=== PATIENT | male | born 1935 | race Caucasian/White ===

== ENCOUNTER → 2023-09-26 | Outpatient (CLI) | payer MEDICARE, SELFPAY ==
--- NOTE | 2023-09-26 12:56 | ART_ITS ---
Reason For Study: BLE pain Procedure A bilateral lower extremity continuous wave Doppler with analog waveform analysis,segmental pressures,and ankle brachial indexes without exercise. Left Segmental Pressures Left brachial= 109mmHg. Left posterior tibial artery = 134mmHg. Left dorsalis pedis artery = 128mmHg. Left digit = 103 mmHg. The left posterior tibial artery waveforms are triphasic. The left dorsalis pedis waveforms are triphasic. Right Segmental Pressures Right brachial= 110mmHg. Right posterior tibial artery = 127mmHg. Right dorsalis pedis artery = 123mmHg. Right digit = 96 mmHg. The right posterior tibial artery waveforms are triphasic. The right dorsalis pedis waveforms are triphasic. Indices The right ankle brachial index by the posterior tibial artery is 1.15. The right ankle brachial index by the dorsalis pedis is 1.12. The right digital-brachial index is 0.87. The left ankle brachial index by the posterior tibial artery is 1.22. The left ankle brachial index by the dorsalis pedis is 1.16. The left digital-brachial index is 0.94. VL/Lower Ext Art Exam w/o Exercis Interpretation Summary Triphasic Doppler waveforms are noted at ankle level bilaterally. Pulse-volume recordings appear satisfactory at all levels bilaterally. Resting ankle-brachial indices are norm al bilaterally. Digital-brachial indices are normal bilaterally. There is no evidence of significant arterial occlusive disease in the lower ext remities bilaterally. Ordering Physician: Heather Altamirano Referring Physician: HEATHER ALTAMIRANO DPM Performed By: Rosendo Up RVT
--- NOTE | 2023-09-26 12:56 | VDLE_ITS ---
Reason For Study: BLE Pain RIGHT LEFT CFV is compressible, spontaneous, phasic, CFV is compressible, spontaneous, phasic, competent and demonstrates normal competent, and demonstrates normal augmentation. augmentation. FV is compressible, spontaneous, phasic, FV is compressible, spontaneous, phasic, competent and demonstrates normal competent and demonstrates normal augmentation. augmentation. POP V is compressible, spontaneous, phasic, POP V is compressible, spontaneous, phasic, competent and demonstrates normal competent and demonstrates normal augmentation. augmentation. T/P Trunk is compressible. T/P Trunk is compressible. PTV is compressible. PTV is compressible. RT PerV is compressible. LT PerV is compressible. SFJ is competent and measures 0.61 cm. SFJ is competent and measures 0.42 cm. GSV proximal thigh measures 0.28 x 0.31 cm. GSV proximal thigh measures 0.34 x 0.36 cm. GSV at knee measures 0.32 x 0.34 cm. GSV at knee measures 0.22 x 0.33 cm. GSV is competent throughout. GSV is competent throughout. SSV proximal calf is competent and measures SSV proximal calf is competent and measures 0.17 x 0.22 cm. 0.26 x 0.27 cm. Procedure Exam performed in department. This is a venous duplex using B-mode, color flow and spectral Doppler. The exam was diagnostic. Patient was scanned in reverse Trendelenburg position during reflux assessment. VL/Venous Duplex US - Andrea Extrem Interpretation Summary Deep veins of the lower extremities are bilaterally patent and compressible seg mentally. There is no evidence of deep vein thrombosis on either side. Valvular competence appears in tact within the proximal deep venous systems bilaterally. The great saphenous veins appear bila terally patent and compressible segmentally. Sapheno-femoral junctions are bilaterally competent . Valvular competence appears to be intact segmentally within the great saphenous veins bilaterally. Small saphenous veins are patent and competent bilaterally. Ordering Physician: Rusty Altamirano Referring Physician: Rusty Altamirano Performed By: Rosendo Up RVT
== END | disposition home or self-care (01) ==
PROVIDERS: PCP Family Medicine; Referring Provider Podiatrist Foot & Ankle Surgery; Visit Provider Podiatrist Foot & Ankle Surgery
DX: I73.89 Other specified peripheral vascular diseases (principal); M79.604 Pain in right leg; M79.605 Pain in left leg
CPT/HCPCS: 93923; 93970